=== PATIENT | female | born 2005 | race African-American/Black ===

== ENCOUNTER 2025-03-16 13:58 | Emergency (ER) | payer OTHER ==
[~2025-03-16] VITALS: Ht 152.4 cm; Wt 82.0 kg
[2025-03-16 14:22] VITALS: BP 125/60; PULSE 85; RESP 18; TEMP 98.1; O2SAT 99
[2025-03-16 15:52] LABS: PLATELET COUNT (AUTO) 217 K/uL (150-450); RED BLOOD CELL COUNT(AUTO) 4.41 MIL/uL (4.00-5.20); RED CELL DISTRIBUTION WIDTH 13.7 % (11.5-14.5); WHITE BLOOD COUNT (AUTO) 6.3 K/uL (4.5-11.0)
[2025-03-16 16:01] LABS: CALCIUM, TOTAL 8.8 mg/dL (8.8-10.5); CREATININE 0.64 mg/dL (0.60-1.30); GLOMERULAR FILTR. RATE CALC > 60 mL/min (>60); GLUCOSE,RANDOM 70 mg/dL (70-110); SODIUM SERUM 139 mmol/L (136-145); UREA NITROGEN, BLOOD 11 mg/dL (7-18)
[2025-03-16] MEDS ORDERED: IBUP-1554 PO (16:38)
[2025-03-16] MEDS ORDERED: ACET-66 PO (16:38)
== END 2025-03-16 16:48 | disposition home or self-care (01) ==
LOC: EMS 13:58
DX: N63.20 Unspecified lump in the left breast, unspecified quadrant (principal)
CPT/HCPCS: 80048; 84703; 85025; 99283